=== PATIENT | female | born 1930 | race Caucasian/White ===

== ENCOUNTER 2016-04-03 20:07 | Emergency (ER) | payer MEDICARE ==
[2016-04-03] MEDS ORDERED: SODIUM CHLORIDE 0.9% 1,000 ML ONE (21:16)
[2016-04-03] MEDS ORDERED: PANTOPRAZOLE SODIUM 40 MG VIAL IV ONE (21:16)
[2016-04-03 21:47] LABS: ABSOLUTE NEUTROPHIL COUNT 5.7 K/mm3 (1.8-7.7); BASO % 0.4 % (0.2-1.0); EOS # 0.1 (0.0-0.5); EOS % 1.2 % (0.9-2.9); HEMATOCRIT 37.3 % (37.0-47.0); IMM NEUT% 0.5 % (0-1); LYMPH # 1.5 (1.0-4.8); MEAN CORPUSCULAR HEMOGLOBIN 28.6 pg (27.0-31.0); MEAN CORPUSCULAR HGB CONC 32.2 g/dl (33.0-37.0); MEAN PLATELET VOLUME 10.4 fl (7.4-10.4); MONO # 0.6 (0.0-0.8); MONO % 7.5 % (4-12); NEUT % 71.4 % (43-75); PLATELET COUNT 236 K/mm3 (130-400); RED CELL DISTRIBUTION WIDTH 14.7 % (11.5-14.5)
[2016-04-03 21:53] LABS: INR 0.94; PROTHROMBIN TIME 9.9 SECONDS (9.3-11.4)
[2016-04-03 21:56] LABS: ALB/GLOB RATIO 1.3 (>1.0); ALBUMIN 4.3 gm/dL (3.5-5.7); CALCIUM 9.7 mg/dL (8.6-10.3)
== END 2016-04-03 23:06 | disposition home or self-care (01) ==
LOC: ED 20:07
DX: K64.9 Unspecified hemorrhoids (principal); E66.9 Obesity, unspecified; E11.9 Type 2 diabetes mellitus without complications; I10 Essential (primary) hypertension; J45.909 Unspecified asthma, uncomplicated; Z79.899 Other long term (current) drug therapy
CPT/HCPCS: 85025; 80053; 85610; 86901; 86850 ×3; 99283 ×2; 96374; 96361 ×2; C9113; J7030